=== PATIENT | male | born 1955 | race Caucasian/White ===

== ENCOUNTER 2017-06-30 12:04 | Inpatient (IN) | payer MEDICAID, OTHER, SELFPAY ==
[~2017-06-30] VITALS: Ht 182.9 cm; Wt 118.2 kg
[2017-06-30] MEDS ORDERED: SODIUM CHLORIDE 0.9% 1,000 ML IV ONE (12:05)
[2017-06-30] MEDS ORDERED: ACETAMINOPHEN 500 MG TABLET ONE (12:13)
[2017-06-30] MEDS ORDERED: ACETAMINOPHEN 500 MG TABLET PO ONE (12:30)
[2017-06-30] MEDS ORDERED: AZITHROMYCIN 500 MG in SODIUM CHLORIDE 0.9% 250 ML IVPB ONE (12:30)
[2017-06-30] MEDS ORDERED: PLEASE ENTER ALLERGIES MC SCH ×2 (12:30)
[2017-06-30] MEDS ORDERED: PLEASE ENTER HEIGHT AND WEIGHT MC SCH (12:30)
[2017-06-30] MEDS ORDERED: SODIUM CHLORIDE FLUSH 10ML SYR IVF ONE (12:30)
[2017-06-30] MEDS ORDERED: CEFTRIAXONE PMX 1GM/50ML 50 ML IVPB ONE (12:30)
[2017-06-30] MEDS ORDERED: SODIUM CHLORIDE 0.9% 1,000ML IVBOLUS ONE ×3 (12:30→16:30)
[2017-06-30 12:39] LABS: RAPID INFLUENZA A Negative (Negative); RAPID INFLUENZA B Negative (Negative)
[2017-06-30 12:50] LABS: HEMATOCRIT 42.3 % (39.2-51.8); HEMOGLOBIN 14.4 g/dL (13.7-18.0); WHITE BLOOD COUNT 8.6 x10^3/uL (3.4-10)
[2017-06-30 13:00] LABS: BLOOD UREA NITROGEN 14 mg/dL (7-18)
[2017-06-30 13:07] LABS: ASPARTATE AMINO TRANSFERASE 44 U/L (15-37)
[2017-06-30] MEDS ORDERED: CEFTRIAXONE PMX 1GM/50ML 50 ML ONE (13:13)
[2017-06-30] MEDS ORDERED: MORP30TA3 PO (13:19)
[2017-06-30 13:20] LABS: DIFF TOTAL CELLS COUNTED 100 CELL DIFF
[2017-06-30 13:22] LABS: VERIFY COUNTS? YES
[2017-06-30] MEDS ORDERED: SODIUM CHLORIDE FLUSH 10ML SYR IVF PRN (14:30)
[2017-06-30] MEDS ORDERED: BISACODYL 10 MG SUPP PR PRN (15:00)
[2017-06-30] MEDS ORDERED: ONDANSETRON 2MG/ML, 2ML IVPush PRN (15:00)
[2017-06-30] MEDS ORDERED: ACETAMINOPHEN 325 MG TABLET PO PRN (15:00)
[2017-06-30] MEDS ORDERED: POLYETHYLENE GLYCOL 17 GM PACKET PO PRN (15:00)
[2017-06-30] MEDS ORDERED: ENALAPRILAT 1.25 MG/ML, 2ML IVPush PRN (15:00)
[2017-06-30] MEDS ORDERED: VANCOMYCIN PER PHARMACY MC PRN (15:00)
[2017-06-30] MEDS ORDERED: hydrALAzine 20 MG/ML, 1ML IVPush PRN (15:00)
[2017-06-30] MEDS ORDERED: VANCOMYCIN PMX 1GM/200ML 200 ML IV ONE (15:00)
[2017-06-30] MEDS ORDERED: PIPERACILLIN/TAZO/PMX 3.375GM 50 ML ONE (15:25)
[2017-06-30] MEDS: PIPERACILLIN/TAZO/PMX 3.375GM 50 ML IV SCH ×2 (15:27→21:42)
[2017-06-30 15:33] LABS: C-REACTIVE PROTEIN, QUANT 1.3 mg/dL (0.02-0.49)
[2017-06-30 15:55] LABS: IS PT STATUS REG ER OR PRE ER? YES
[2017-06-30] MEDS ORDERED: PHARMACOKINETIC MONITORING MC PRN (16:00)
[2017-06-30] MEDS ORDERED: MAGNESIUM SULFATE PMX 2GM/50ML 50 ML IV ONE (16:30)
[2017-06-30] MEDS: VANCOMYCIN 2,000 MG in SODIUM CHLORIDE 0.9% 500 ML IV SCH (16:44)
[2017-06-30 17:53] VITALS: BP 110/69
[2017-06-30] MEDS: morphine SULFATE 10 MG/ML, 1ML IVPush PRN (18:12)
[2017-06-30] MEDS: SODIUM CHLORIDE 0.9% 1,000 ML IV SCH (18:13)
[2017-06-30] MEDS: HEPARIN 5,000 UNITS/ML, 1ML SQ SCH (18:13)
[2017-06-30 19:21] LABS: IS PT STATUS REG ER OR PRE ER? NO
[2017-06-30 20:00] VITALS: BP 103/64
[2017-07-01] VITALS (7 sets, daily range): BP systolic 104–166; BP diastolic 66–95
[2017-07-01 01:46] LABS: IS PT STATUS REG ER OR PRE ER? NO
[2017-07-01] MEDS: HEPARIN 5,000 UNITS/ML, 1ML SQ SCH ×3 (02:41→17:27)
[2017-07-01] MEDS: PIPERACILLIN/TAZO/PMX 3.375GM 50 ML IV SCH ×4 (02:44→22:29)
[2017-07-01] MEDS: morphine SULFATE 10 MG/ML, 1ML IVPush PRN ×4 (02:48→22:24)
[2017-07-01] MEDS: SODIUM CHLORIDE 0.9% 1,000 ML IV SCH ×2 (05:35→12:30)
[2017-07-01 05:39] LABS: HEMATOCRIT 37.9 % (39.2-51.8); WHITE BLOOD COUNT 15.9 x10^3/uL (3.4-10)
[2017-07-01 06:08] LABS: DIFF TOTAL CELLS COUNTED 100 CELL DIFF
[2017-07-01 06:11] LABS: ASPARTATE AMINO TRANSFERASE 29 U/L (15-37); BLOOD UREA NITROGEN 13 mg/dL (7-18); VERIFY COUNTS? YES
[2017-07-01] MEDS: SENNA/DOCUSATE TABLET PO SCH (09:00)
[2017-07-01] MEDS: VANCOMYCIN 2,000 MG in SODIUM CHLORIDE 0.9% 500 ML IV SCH (10:39)
[2017-07-01] MEDS ORDERED: FLUMAZENIL 0.1 MG/1 ML, 5ML ONE (14:37)
[2017-07-01] MEDS ORDERED: FENTANYL PF 100 MCG/2ML ONE (14:37)
[2017-07-01] MEDS ORDERED: MIDAZOLAM 1 MG/ML, 5ML ONE (14:37)
[2017-07-01] MEDS ORDERED: NALOXONE 1 MG/ML, 2ML ONE (14:37)
[2017-07-01] MEDS ORDERED: GADOBUTROL 10 MMOL/10 ML PFS ONE (15:32)
[2017-07-02] MEDS: HEPARIN 5,000 UNITS/ML, 1ML SQ SCH ×3 (01:03→17:10)
[2017-07-02] MEDS: OXYcodone IR 5MG TABLET PO PRN (01:03)
[2017-07-02] MEDS: PIPERACILLIN/TAZO/PMX 3.375GM 50 ML IV SCH ×4 (03:12→20:49)
[2017-07-02] MEDS: SODIUM CHLORIDE 0.9% 1,000 ML IV SCH (03:16)
[2017-07-02] MEDS: morphine SULFATE 10 MG/ML, 1ML IVPush PRN ×2 (03:35→09:43)
[2017-07-02] MEDS: VANCOMYCIN 2,000 MG in SODIUM CHLORIDE 0.9% 500 ML IV SCH ×2 (04:55→22:58)
[2017-07-02 05:56] LABS: HEMATOCRIT 40.4 % (39.2-51.8); HEMOGLOBIN 13.9 g/dL (13.7-18.0); WHITE BLOOD COUNT 13.3 x10^3/uL (3.4-10)
[2017-07-02 06:39] LABS: BLOOD UREA NITROGEN 14 mg/dL (7-18)
[2017-07-02] MEDS ORDERED: METHOCARBAMOL 750 MG TABLET PO PRN (08:30)
[2017-07-02] MEDS ORDERED: ERGOCALCIFEROL 50,000 UNIT CAPSULE PO SCH (08:30)
[2017-07-02 08:44] VITALS: BP 162/96
[2017-07-02] MEDS: SENNA/DOCUSATE TABLET PO SCH (08:44)
[2017-07-02] MEDS: GABAPENTIN 300 MG CAPSULE PO SCH ×3 (08:44→20:49)
[2017-07-02 12:41] VITALS: BP 149/81
[2017-07-02 18:57] VITALS: BP 156/82
[2017-07-02] MEDS ORDERED: DIPHENHYDRAMINE 25 MG CAPSULE PO ONE (22:30)
[2017-07-03 00:47] VITALS: BP 133/82
[2017-07-03 00:51] VITALS: BP 133/83
[2017-07-03] MEDS: HEPARIN 5,000 UNITS/ML, 1ML SQ SCH ×3 (02:00→18:00)
[2017-07-03] MEDS: PIPERACILLIN/TAZO/PMX 3.375GM 50 ML IV SCH ×4 (03:38→21:12)
[2017-07-03 05:48] LABS: HEMOGLOBIN 13.5 g/dL (13.7-18.0); WHITE BLOOD COUNT 8.7 x10^3/uL (3.4-10)
[2017-07-03 05:53] LABS: BLOOD UREA NITROGEN 14 mg/dL (7-18)
[2017-07-03 07:44] VITALS: BP 142/74
[2017-07-03] MEDS: SENNA/DOCUSATE TABLET PO SCH (09:00)
[2017-07-03] MEDS: GABAPENTIN 300 MG CAPSULE PO SCH ×3 (09:36→21:09)
[2017-07-03 14:11] VITALS: BP 157/83
[2017-07-03] MEDS: VANCOMYCIN 2,000 MG in SODIUM CHLORIDE 0.9% 500 ML IV SCH (16:25)
[2017-07-03] MEDS: OXYcodone IR 5MG TABLET PO PRN (16:31)
[2017-07-03 20:26] VITALS: BP 146/84
[2017-07-04 01:46] VITALS: BP 130/77
[2017-07-04] MEDS: OXYcodone IR 5MG TABLET PO PRN ×3 (01:51→19:20)
[2017-07-04] MEDS: HEPARIN 5,000 UNITS/ML, 1ML SQ SCH ×3 (01:51→12:28)
[2017-07-04] MEDS: PIPERACILLIN/TAZO/PMX 3.375GM 50 ML IV SCH ×4 (04:04→22:50)
[2017-07-04 05:10] LABS: HEMATOCRIT 40.9 % (39.2-51.8); WHITE BLOOD COUNT 8.6 x10^3/uL (3.4-10)
[2017-07-04 05:25] LABS: BLOOD UREA NITROGEN 14 mg/dL (7-18)
[2017-07-04 07:35] VITALS: BP 138/77
[2017-07-04] MEDS: GABAPENTIN 300 MG CAPSULE PO SCH ×3 (08:47→22:50)
[2017-07-04] MEDS: SENNA/DOCUSATE TABLET PO SCH (08:48)
[2017-07-04] MEDS: VANCOMYCIN 2,000 MG in SODIUM CHLORIDE 0.9% 500 ML IV SCH (11:04)
[2017-07-04 12:26] VITALS: BP 156/89
[2017-07-04] MEDS ORDERED: ENALAPRILAT 1.25 MG/ML, 2ML IVPush PRN (18:30)
[2017-07-04] MEDS ORDERED: METHOCARBAMOL 750 MG TABLET PO PRN (18:30)
[2017-07-04] MEDS ORDERED: VANCOMYCIN PER PHARMACY MC PRN (18:30)
[2017-07-04] MEDS ORDERED: PHARMACOKINETIC MONITORING MC PRN (18:30)
[2017-07-04] MEDS ORDERED: hydrALAzine 20 MG/ML, 1ML IVPush PRN (18:30)
[2017-07-04] MEDS ORDERED: ACETAMINOPHEN 325 MG TABLET PO PRN (18:30)
[2017-07-04] MEDS ORDERED: POLYETHYLENE GLYCOL 17 GM PACKET PO PRN (18:30)
[2017-07-04] MEDS ORDERED: BISACODYL 10 MG SUPP PR PRN (18:30)
[2017-07-04] MEDS ORDERED: ONDANSETRON 2MG/ML, 2ML IVPush PRN (18:30)
[2017-07-04 20:07] VITALS: BP 189/85
[2017-07-04 21:50] VITALS: BP 156/98
[2017-07-05] MEDS: HEPARIN 5,000 UNITS/ML, 1ML SQ SCH ×4 (01:46→17:01)
[2017-07-05 01:58] VITALS: BP 144/76
[2017-07-05] MEDS: OXYcodone IR 5MG TABLET PO PRN ×4 (03:05→22:24)
[2017-07-05] MEDS: PIPERACILLIN/TAZO/PMX 3.375GM 50 ML IV SCH ×4 (03:34→22:23)
[2017-07-05] MEDS: VANCOMYCIN 2,000 MG in SODIUM CHLORIDE 0.9% 500 ML IV SCH ×2 (04:17→23:15)
[2017-07-05 04:51] LABS: HEMATOCRIT 45.4 % (39.2-51.8); HEMOGLOBIN 15.7 g/dL (13.7-18.0); WHITE BLOOD COUNT 13.6 x10^3/uL (3.4-10)
[2017-07-05 05:02] LABS: BLOOD UREA NITROGEN 14 mg/dL (7-18)
[2017-07-05 05:07] LABS: ASPARTATE AMINO TRANSFERASE 26 U/L (15-37)
[2017-07-05 06:30] VITALS: BP 167/95
[2017-07-05] MEDS ORDERED: KETOROLAC 30 MG/1 ML IM SCH (08:30)
[2017-07-05] MEDS ORDERED: KETOROLAC 30 MG/1 ML IM PRN (08:30)
[2017-07-05] MEDS: SENNA/DOCUSATE TABLET PO SCH (09:00)
[2017-07-05] MEDS: GABAPENTIN 300 MG CAPSULE PO SCH ×3 (09:51→20:03)
[2017-07-05 12:50] VITALS: BP 175/78
[2017-07-05 14:27] VITALS: BP 162/97
[2017-07-05] MEDS ORDERED: KETOROLAC 30 MG/1 ML IVPush PRN (14:30)
[2017-07-05 20:25] VITALS: BP 125/80
[2017-07-06] MEDS: HEPARIN 5,000 UNITS/ML, 1ML SQ SCH ×2 (01:36→10:00)
[2017-07-06 02:55] VITALS: BP 113/71
[2017-07-06] MEDS: PIPERACILLIN/TAZO/PMX 3.375GM 50 ML IV SCH ×2 (05:17→10:00)
[2017-07-06] MEDS: OXYcodone IR 5MG TABLET PO PRN ×2 (05:17→08:58)
[2017-07-06 06:08] LABS: HEMATOCRIT 43.2 % (39.2-51.8); HEMOGLOBIN 15.1 g/dL (13.7-18.0); WHITE BLOOD COUNT 14.7 x10^3/uL (3.4-10)
[2017-07-06 07:15] VITALS: BP 114/74
[2017-07-06] MEDS: GABAPENTIN 300 MG CAPSULE PO SCH (08:58)
[2017-07-06] MEDS: SENNA/DOCUSATE TABLET PO SCH (08:58)
== END 2017-07-06 11:25 | disposition home or self-care (01) | DRG 871 ==
LOC: ED 14:27 → EDIP 14:28 → ED 14:57 → 4EST 17:30 → DCLOUNGE 07-06 11:15
PROVIDERS: ADMIT Internal Medicine; ATTEND Internal Medicine
DX: A41.9 Sepsis, unspecified organism (principal); E43 Unspecified severe protein-calorie malnutrition; J15.9 Unspecified bacterial pneumonia; N39.0 Urinary tract infection, site not specified; J98.11 Atelectasis; R65.20 Severe sepsis without septic shock; E66.9 Obesity, unspecified; R74.0 Nonspecific elevation of levels of transaminase and lactic acid dehydrogenase [LDH]; F12.90 Cannabis use, unspecified, uncomplicated; F17.210 Nicotine dependence, cigarettes, uncomplicated; G89.29 Other chronic pain; I10 Essential (primary) hypertension; K76.9 Liver disease, unspecified; M54.9 Dorsalgia, unspecified; R79.89 Other specified abnormal findings of blood chemistry; Z68.35 Body mass index [BMI] 35.0-35.9, adult; Z91.14 Patient's other noncompliance with medication regimen
CPT/HCPCS: 36415; 71010; 72158; 76700; 80048; 80053; 80061; 80202; 81001; 82306; 82607; 83036; 83605; 83735; 83880; 84145; 84439; 84443; 84484; 85025; 85610; 85651; 85730; 86140; 87040; 87077; 87086; 87400; 93005; 93306; 96365; 96366; 96367; 99156; 99157; A9585; J0456; J0696; J1644; J2250; J2543; J3010; J3370; J0360; J2270; J2310; J3475; J7030; J7040; J7050; Q0163

== ENCOUNTER 2019-12-09 13:24 | Emergency (ER) | payer MEDICAID ==
[~2019-12-09] VITALS: Ht 182.9 cm; Wt 100.0 kg
[~2019-12-09 13:24] MED LIST: MORP-30 PO
[2019-12-09 13:34] VITALS: BP 145/89
== END 2019-12-09 14:56 | disposition home or self-care (01) ==
LOC: ED 14:50
DX: S40.262A Insect bite (nonvenomous) of left shoulder, initial encounter (principal); S40.261A Insect bite (nonvenomous) of right shoulder, initial encounter; I10 Essential (primary) hypertension; F17.200 Nicotine dependence, unspecified, uncomplicated; G89.29 Other chronic pain; W57.XXXA Bitten or stung by nonvenomous insect and other nonvenomous arthropods, initial encounter; Y93.89 Activity, other specified; Y92.89 Other specified places as the place of occurrence of the external cause; Y99.8 Other external cause status
CPT/HCPCS: 99283

== ENCOUNTER 2020-04-26 08:10 | Emergency (ER) | payer MEDICAID ==
[~2020-04-26] VITALS: Ht 182.9 cm; Wt 100.0 kg
[2020-04-26 08:12] VITALS: BP 136/73
--- NOTE | 2020-04-26 09:24 | NUR ---
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
--- NOTE | 2020-04-26 09:34 | NUR ---
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
--- NOTE | 2020-04-26 09:51 | NUR ---
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
== END 2020-04-26 09:53 | disposition left against medical advice (07) ==
LOC: ED 08:41
DX: B86 Scabies (principal); B85.0 Pediculosis due to Pediculus humanus capitis; I10 Essential (primary) hypertension
CPT/HCPCS: 99283

== ENCOUNTER 2020-11-14 05:33 | Emergency (ER) | payer MEDICAID ==
[~2020-11-14] VITALS: Ht 182.9 cm; Wt 92.0 kg
[2020-11-14 05:41] VITALS: BP 134/68
--- NOTE | 2020-11-14 05:58 | NUR ---
MED REQ SENT TO PHARM
[2020-11-14] MEDS ORDERED: PERMETHRIN CRM 5%, 60GM TP ONE (06:00)
[2020-11-14] MEDS ORDERED: PERMETHRIN CRM 5%, 60GM ONE (06:26)
--- NOTE | 2020-11-14 06:30 | NUR ---
PT MEDICATED PER MAR, PT GIVEN DC INSTRUCTIONS. REFUSING TO LEAVE ED, PT DEMANDING TOILET PAPER, PT EDUCATED WE DO NOT SUPPLY THAT, PT BEGAN CURSING AT RN. SECURITY TO FACILITY DEPARTURE FROM FACILITY AT THIS TIME
== END 2020-11-14 06:33 | disposition home or self-care (01) ==
LOC: ED 06:30
DX: B86 Scabies (principal); R21 Rash and other nonspecific skin eruption; I10 Essential (primary) hypertension; G89.29 Other chronic pain
CPT/HCPCS: 99283; Q0177

== ENCOUNTER 2021-01-29 13:28 | Emergency (ER) | payer MEDICAID ==
[~2021-01-29] VITALS: Ht 180.3 cm; Wt 85.0 kg
[2021-01-29 13:49] VITALS: BP 139/90
--- NOTE | 2021-01-29 13:52 | NUR ---
Pt in decon shower now. ALONSO Travis in room to evaluate pt.
[2021-01-29] MEDS ORDERED: DIPHENHYDRAMINE 25 MG CAPSULE PO ONE (14:30)
[2021-01-29] MEDS ORDERED: DIPHENHYDRAMINE 50 MG CAPSULE ONE (15:07)
--- NOTE | 2021-01-29 15:14 | NUR ---
This pt refused to shower, stating "last time they didn't give me any clothes." Pt provided "bug" sample that was a scab from his back. Pt d/c'd from [facility].
== END 2021-01-29 15:28 | disposition home or self-care (01) ==
LOC: ED 14:18
DX: B85.1 Pediculosis due to Pediculus humanus corporis (principal); F17.210 Nicotine dependence, cigarettes, uncomplicated; I10 Essential (primary) hypertension; G89.29 Other chronic pain
CPT/HCPCS: 99282; 99406; Q0163

== ENCOUNTER 2021-04-16 19:00 | Emergency (ER) | payer MEDICAID ==
[~2021-04-16] VITALS: Ht 182.9 cm; Wt 95.0 kg
--- NOTE | 2021-04-16 21:20 | NUR ---
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
[2021-04-16] MEDS ORDERED: HYDROcodone/APAP 5/325 TABLET PO ONE (22:00)
[2021-04-16] MEDS ORDERED: HYDROcodone/APAP 5/325 TABLET ONE (22:02)
[2021-04-16 22:33] LABS: BASOPHILS % (AUTO) 2 % (0-1); EOSINOPHILS % (AUTO) 5 % (1-7); LYMPHOCYTES % (AUTO) 22 % (22-44); MEAN CORPUSCULAR HEMOGLOBIN 30.1 pg (27.5-34.5); MEAN CORPUSCULAR HGB CONC 33.6 g/dL (33.2-36.2); MEAN PLATELET VOLUME 8.8 fL (7.4-10.4); MONOCYTES % (AUTO) 14 % (2-9); NEUTROPHILS % (AUTO) 56 % (42-75); PLATELET COUNT 156 x10^3/uL (130-400); RED BLOOD COUNT 4.09 x10^6/uL (4.38-5.82); RED CELL DISTRIBUTION WIDTH 14.5 % (9.4-14.8)
[2021-04-16 22:42] LABS: ALANINE AMINOTRANSFERASE 13 U/L (12-78); ALBUMIN 2.9 g/dL (3.4-5.0); ANION GAP 3 mmol/L (5-15); CALCIUM 9.2 mg/dL (8.5-10.1); CHLORIDE 108 mmol/L (98-107); CREATININE 1.03 mg/dL (0.7-1.3)
[2021-04-16 22:46] LABS: ALKALINE PHOSPHATASE 104 U/L (45-117); BILIRUBIN,TOTAL 1.3 mg/dL (0.2-1.0); TOTAL PROTEIN 7.2 g/dL (6.4-8.2)
[2021-04-16 22:50] VITALS: BP 132/85
== END 2021-04-16 23:36 | disposition home or self-care (01) ==
LOC: ED 21:43
DX: L03.116 Cellulitis of left lower limb (principal); R60.0 Localized edema; I10 Essential (primary) hypertension
CPT/HCPCS: 36415; 80053; 83880; 85025; 87040; 93970; 99284